=== PATIENT | female | born 1985 | race Caucasian/White ===

== ENCOUNTER 2019-04-16 14:52 | Observation (INO) ==
[2019-04-16] MEDS ORDERED: *HR* Dextrose 50 % in Water (Syg) 50 ML SYRINGE ONE (15:19)
--- NOTE | 2019-04-16 15:37 | Emergency Department Note ---
Disposition Clinical Impression: Seizure, Left-sided weakness Disposition: Admitted As Inpatient Condition: Good Referrals: Joe Noguera MD [Primary Care Provider] - Forms: ED Satisfaction Letter Time of Disposition: 17:34 General Adult HPI - General Chief complaint: ED Seizure Stated complaint: seizures Time Seen by Provider: 04/16/19 15:00 Source: EMS Limitations: no limitations Nursing Notes Reviewed: Yes Vital Signs Reviewed: Yes - History of Present Illness HPI Narrative: 33 year old female presents to the ED with complanits of left sided weakness s/p seizure today. she has been having seizures on and off ove rhte past year and is otherwise without medications and had another siezure today at 1330 and states that she has intermiteemtn LOC. Sacha aranda at bedside states that it was witnessed and othewise that her right side started to have jerk like motions. Patient is laying at bedside now with significant weaknes to the lefts suhail of her upper and lower extremity which can be concnering for todds paralysis although she has aphasia and difficulty with speaking clearly which I would not otherwise expect with Todds paralysis. Sacha partner and mother at bedside states that her previous seizure have been secondary to anxiety but not this bad and that she has recently been dealing with a viral URI. No fevers at home Pain Scale: 5 - Related Data Home Medications Medication Instructions Recorded Confirmed Albuterol Sulfate [Albuterol 1 puff IH PRN PRN 07/01/15 04/16/19 Inhaler] Oxycodone HCl/Acetaminophen 1 tab PO DAILY 07/01/15 04/16/19 [Percocet 5-325 mg Tablet] ALPRAZolam [Xanax 0.5 MG Tablet] 1 mg PO TID PRN 09/28/16 04/16/19 Docusate [Colace] 100 mg PO BID PRN 09/28/16 04/16/19 Omeprazole [PriLOSEC] 40 mg PO DAILY 09/28/16 04/16/19 Previous Rx's Medication Instructions Recorded Ciprofloxacin [Cipro] 500 mg PO BID #6 tablet 10/13/16 Rizatriptan Benzoate [[employer]] 10 mg PO AD PRN #30 tab.rapdis 10/13/16 Promethazine [Phenergan] 25 mg PO Q8HR #20 tablet 02/10/17 Allergies Allergy/AdvReac Type Severity Reaction Status Date / Time diphenhydramine Allergy Itching Verified 02/02/19 14:03 [From Benadryl] prochlorperazine Allergy Itching Verified 02/02/19 14:03 [From Compazine] Sulfa (Sulfonamide Allergy Hives Verified 02/02/19 14:03 Antibiotics) metoclopramide [From Reglan] AdvReac Difficulty Verified 02/02/19 14:03 Breathing ondansetron AdvReac Headache Verified 02/02/19 14:03 [From Zofran (as hydrochloride)] All systems ED: reviewed and negative except as stated. Review of Systems: As Per HPI Constitutional: Reports: weakness. Denies: fever, chills, weight change Eyes: Denies: eye pain, eye discharge, vision change ENT ED: Denies: ear pain, throat pain, dental pain, hearing loss, epistaxis, congestion, dysphagia Cardiovascular: Denies: chest pain, palpitations, dyspnea on exertion, edema, syncope Respiratory: Denies: cough, dyspnea, wheezes, hemoptysis, stridor Gastrointestinal: Denies: abdominal pain, nausea, vomiting, diarrhea, constipation, hematemesis, melena, hematochezia Genitourinary: Denies: dysuria, frequency, hematuria, discharge Musculoskeletal: Denies: back pain, neck pain, arthralgia, myalgia Integumentary: Denies: rash, abrasion, lesions Neurological: Reports: weakness, paresthesias. Denies: headache, numbness, confusion, abnormal gait, vertigo Psychiatric: Reports: anxiety. Denies: depression, suicidal thoughts, homicidal thoughts, auditory hallucinations, visual hallucinations Endocrine: Denies: fatigue Hematological/Lymphatic: Denies: easy bleeding, easy bruising Allergic/Immunologic: Denies: facial swelling, urticaria Past Medical History - Past Medical History Medical history: Reports: asthma, migraine, seizures Surgical history: Reports: appendectomy, cholecystectomy Psychiatric history: Reports: anxiety, depression LIAISON OFFICER history: Reports: non-contributory, bilateral tubal ligation - Social History Smoking Status: Never smoker Smokeless Tobacco Status: No Alcohol use: Reports: none Drug use: Reports: none Physical Exam - General Limitations: no limitations General appearance: alert, anxious, lethargic - Head Head exam: atraumatic, normocephalic, normal inspection - Eye Eye exam: Present: normal appearance, PERRL, EOMI - Expanded Eye Exam Pupils: Bilateral: reactive - ENT ENT exam: normal exam, normal oropharynx, mucous membranes moist - Expanded ENT Exam External ear exam: Present: normal external inspection Mouth exam: Present: normal external inspection Teeth exam: Present: normal inspection Throat exam: Present: normal inspection - Neck Neck exam: Present: normal inspection, full ROM, trachea midline - Chest Chest inspection: Present: normal inspection, symmetric chest wall rise - Respiratory Respiratory exam: Present: normal lung sounds bilaterally - Cardiovascular Cardiovascular exam: Present: regular rate, normal rhythm, normal heart sounds - Abdominal Exam Abdominal exam: Present: soft, Non-Tender. Absent: tenderness, distention, guarding, rebound, rigidity - Extremities Exam Extremities exam: Present: normal inspection, full ROM. Absent: tenderness, pedal edema - Expanded Upper Extremity Exam Shoulder exam: Present: normal inspection, full ROM Arm exam: Present: normal inspection, full ROM Elbow exam: Present: normal inspection, full ROM Forearm/Wrist exam: Present: normal inspection, full ROM Hand exam: Present: normal inspection, full ROM Vascular exam: Normal: capillary refill, radial pulse - Expanded Lower Extremity Exam Hip/Pelvis exam: Present: normal inspection, full ROM Upper leg exam: Present: normal inspection, full ROM Knee exam: Present: normal inspection, full ROM Lower leg exam: Present: normal inspection, full ROM Ankle exam: Present: normal inspection, full ROM Foot/toe exam: Present: normal inspection, full ROM Neurovascular/Tendon exam: Absent: motor deficit, sensory deficit, tendon deficit - Back Exam Back exam: Present: normal inspection, full ROM. Absent: tenderness - Neurological Exam Neurological exam: Present: alert, oriented X3 - Expanded Neurological Exam Patient oriented to: Present: person, place, time Speech: Present: expressive aphasia Cranial nerves: EOM function (II, III, IV, ): Normal, facial sensation (V): Abnormal Left, facial palsy (VII): Abnormal Left, gag reflex (IX): Normal, spinal accessory function (XI): Normal, tongue deviation (XII): Normal Motor strength - LUE: 3/5 Motor strength - RUE: 5/5 Motor strength - LLE: 3/5 Motor strength - RLE: 5/5 Coma Scale Eye Opening: Spontaneous Coma Scale Motor Response: Obeys Commands Coma Scale Verbal Response: Oriented Coma Scale Total: 15 - Psychiatric Psychiatric exam: Present: normal affect, normal mood - Skin Skin exam: Present: warm, dry, intact, normal color Course Course Narrative: Patient is likeyl experiencing Todds aphasia although it is otherwise uncharacteristic to have aphasia. 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 glucose of 69, d50 given for therapy. - Consultations Consultation #1: discussed case with [facility] neurolgoist dr. bryant and states she is not a candidate for TPA but would recommend admision for CTA/MRI Time: 16:00 Consultation #2: discussed case with Dr. Cuadra and she accpets patine to her medicine service Time: 17:33 Vital Signs Temperature 97.4 F L 04/16/19 15:03 Pulse Rate 66 04/16/19 15:03 Respiratory Rate 24 04/16/19 15:03 Blood Pressure 133/91 04/16/19 15:03 O2 Sat by Pulse Oximetry 100 04/16/19 15:03 Temperature 97.4 F L 04/16/19 15:03 Pulse Rate 60 04/16/19 15:35 Respiratory Rate 20 04/16/19 15:35 Blood Pressure 122/62 04/16/19 15:35 O2 Sat by Pulse Oximetry 100 04/16/19 15:25 Oxygen Delivery Oxygen Delivery Room Air Medical Decision Making - Lab Data Result diagrams: 04/16/19 15:51 04/16/19 15:51 Lab Results 04/16/19 04/16/19 04/16/19 Range/Units 15:14 15:51 15:51 WBC 13.1 H (4.3-11.1) K/mcL RBC 4.80 (3.82-4.97) M/mcL Hgb 14.0 (11.5-15.4) g/dL Hct 42.0 (35.3-44.9) % MCV 87.5 (83.0-100.0) fL MCH 29.2 (28.0-33.3) pg MCHC 33.3 (31.6-35.5) g/dL RDW 12.6 (11.5-14.5) % Plt Count 289 (140-400) K/mcL MPV 9.5 (9.4-12.4) fL Immature Plt Fraction 1.9 (1.1-6.1) % PT 12.3 H (9.4-12.1) Seconds INR 1.1 APTT 34.3 (26.0-36.0) Seconds Sodium (136-145) mEq/L Potassium (3.5-5.1) mEq/L Chloride (98-107) mEq/L Carbon Dioxide (23-29) mEq/L BUN (6-20) mg/dL Creatinine (0.60-1.20) mg/dL Est GFR ( Amer) (> 60) Est GFR (Non-Af Amer) (> 60) BUN/Creatinine Ratio (6-26) Glucose (70-105) mg/dL POC Glucose 69 L (70-99) mg/dL Calculated Osmolality (280-300) Calcium (8.6-10.3) mg/dL Troponin I (< 0.04) ng/mL 04/16/19 04/16/19 Range/Units 15:51 16:19 WBC (4.3-11.1) K/mcL RBC (3.82-4.97) M/mcL Hgb (11.5-15.4) g/dL Hct (35.3-44.9) % MCV (83.0-100.0) fL MCH (28.0-33.3) pg MCHC (31.6-35.5) g/dL RDW (11.5-14.5) % Plt Count (140-400) K/mcL MPV (9.4-12.4) fL Immature Plt Fraction (1.1-6.1) % PT (9.4-12.1) Seconds INR APTT (26.0-36.0) Seconds Sodium 141 (136-145) mEq/L Potassium 3.5 (3.5-5.1) mEq/L Chloride 106 (98-107) mEq/L Carbon Dioxide 22 L (23-29) mEq/L BUN 11 (6-20) mg/dL Creatinine 0.71 (0.60-1.20) mg/dL Est GFR ( Amer) > 60 (> 60) Est GFR (Non-Af Amer) > 60 (> 60) BUN/Creatinine Ratio 15 (6-26) Glucose 195 H (70-105) mg/dL POC Glucose 167 H (70-99) mg/dL Calculated Osmolality 297 (280-300) Calcium 9.8 (8.6-10.3) mg/dL Troponin I < 0.03 (< 0.04) ng/mL NIH Stroke Scale - Level of Consciousness LOC: Alert - LOC Questions LOC Questions: Answers both correctly - LOC Commands LOC Commands: Performs one correctly - Best Gaze Best Gaze: Normal - Visual Visual: No visual loss - Facial Palsy Facial Palsy: Minor asymmetry on smiling, flattened nasolabial fold - Motor Arms Motor Arm-Left: Drift, does NOT hit bed Motor Arm-Right: No drift for 10 seconds - Motor Legs Motor Leg-Left: Drift, does NOT hit bed Motor Leg-Right: No drift for 5 seconds - Limb Ataxia Limb Ataxia: Absent of affected limb too weak to perform exam - Sensory Sensory: Mild to moderate loss, "not as sharp" - Best Language Best Language: Mild to moderate aphasia. Examiner can identify picture from response - Dysarthria Dysarthria: Mild, slurs some words - Extinction and Inattention Extinction and Inattention: Inattention or extinction in ONE modality - NIHSS Total Score NIHSS Total Score: 8
[2019-04-16] MEDS ORDERED: Isovue-370 500 ML BOTTLE IVP ONE (15:40)
[2019-04-16 16:01] LABS: Immature Platelets 1.9 % (1.1-6.1); Mean Corpuscular HGB Conc 33.3 g/dL (31.6-35.5); Mean Corpuscular Hemoglobin 29.2 pg (28.0-33.3); Mean Corpuscular Volume 87.5 fL (83.0-100.0); Mean Platelet Volume 9.5 fL (9.4-12.4); Red Blood Count 4.8 M/mcL (3.82-4.97); Red Cell Distribution Width 12.6 % (11.5-14.5)
[2019-04-16 16:08] LABS: INR 1.1; Prothrombin Time 12.3 Seconds (9.4-12.1)
[2019-04-16 16:11] LABS: Activated Partial Thrombo Time 34.3 Seconds (26.0-36.0)
[2019-04-16 16:26] LABS: BUN/Creatinine Ratio 15 (6-26); Blood Urea Nitrogen 11 mg/dL (6-20); Calcium 9.8 mg/dL (8.6-10.3); Carbon Dioxide 22 mEq/L (23-29); Chloride 106 mEq/L (98-107); Glucose 195 mg/dL (70-105); Osmolality,Calculated 297 (280-300); Potassium 3.5 mEq/L (3.5-5.1); Sodium 141 mEq/L (136-145); Troponin I < 0.03 ng/mL (< 0.04); eGFR For Non-African Americans > 60 (> 60)
[2019-04-16] MEDS ORDERED: Ondansetron 4 MG/2 ML VIAL IVP ONE (17:14)
[2019-04-16] MEDS ORDERED: GI Cocktail 40 ML EACH PO ONE (17:14)
[2019-04-16] MEDS ORDERED: SUMAtriptan succinate 50 MG TABLET PO PRN (17:35)
[2019-04-16] MEDS ORDERED: Ondansetron 4 MG/2 ML VIAL IVP PRN (17:54)
[2019-04-16] MEDS ORDERED: Naloxone 0.4 MG/ML INJ IVP PRN (17:54)
--- NOTE | 2019-04-16 18:01 | Internal Med History&Physical ---
Date of Encounter: 04/16/19 Time of Encounter: 17:40 Internal Medicine - H&P: HPI Chief complaint: seizure Admitted From: Home History of present illness: Ms. Rucker is a 33 year old female with history of migraine, asthma, obesity, ?seizure since 10/2018, who presented to the ED after an episode of ?seizure today. She is that that she was feeling unwell when she woke up at 11:00 this morning, took her Maxaalt as she thought that it was her migraine coming, and slept off. She woke up at 130pm when she felt intense nausea and it was followed by R UE/LE jerking that was witnessed by her partner. PT reports that she has no recollection of this event. LAsted about 10 mins, spontaneously aborted, associated with loss of bladder/bowel control or up rolling of the eyes. She was however confused for about 10 minutes afterward. When she gained her consciousness, she noted that her L UE and LE were signficantly weaker than the right and also had numbness on that side hence came to the ED for further evaluation. Other than reproducible, point tenderness at the lower end of the sternum, she has no other focal complaints including chest pain, shortness of breath, palpitation, abdominal pain, dysuria, or fever/chills. No recent sick contacts. In the ED, she was afebrile and hemodynamically stable. Labwork was largely unremarkable except for mild leukocytosis of 13.1. Head CT did not show any acute intracranial processes. She has stroke alert activated due to L sided weakness and the recommendation from [facility] neurology was to proceed with CTA and MRI. Patient will be admitted for further management with neurology consultation. Past Med Surg Social Fam HX - Past Medical History Attestation: Yes The following information was validated with the patient. Medical history: asthma, migraine, seizures Additional medical history: New hx seizures, blind left eye Psychiatric history: anxiety, depression - Past Surgical History Surgical History: appendectomy, cholecystectomy Additional surgical history: eye surgery x 3 - Social History Smoking Status: Never smoker Smokeless Tobacco Status: No Alcohol use: none Drug use: none - Additional Family History Additional family history: No family history of epilepsy Internal Medicine - H&P: Meds Albuterol Sulfate [Albuterol Inhaler] 1 puff IH PRN PRN 07/01/15 [History] Oxycodone HCl/Acetaminophen [Percocet 5-325 mg Tablet] 1 tab PO DAILY 07/01/15 [History] ALPRAZolam [Xanax 0.5 MG Tablet] 1 mg PO TID PRN 09/28/16 [History] Docusate [Colace] 100 mg PO BID PRN 09/28/16 [History] Omeprazole [PriLOSEC] 40 mg PO DAILY 09/28/16 [History] Ciprofloxacin [Cipro] 500 mg PO BID #6 tablet 10/13/16 [Rx] Rizatriptan Benzoate [[employer] Occ Therapy Asst] 10 mg PO AD PRN #30 tab.rapdis 10/13/16 [Rx] Promethazine [Phenergan] 25 mg PO Q8HR #20 tablet 02/10/17 [Rx] Allergy/AdvReac Type Severity Reaction Status Date / Time diphenhydramine Allergy Itching Verified 02/02/19 14:03 [From Benadryl] prochlorperazine Allergy Itching Verified 02/02/19 14:03 [From Compazine] Sulfa (Sulfonamide Allergy Hives Verified 02/02/19 14:03 Antibiotics) metoclopramide [From Reglan] AdvReac Difficulty Verified 02/02/19 14:03 Breathing ondansetron AdvReac Headache Verified 02/02/19 14:03 [From Zofran (as hydrochloride)] All Systems PM: A 10-system review of systems was performed and is negative for pertinent findings except as documented above in the HPI. - Constitutional Vitals: Temp Pulse Resp BP Pulse Ox 97.4 F L 60 20 122/62 100 04/16/19 15:03 04/16/19 15:35 04/16/19 15:35 04/16/19 15:35 04/16/19 15:25 Exam: General: Alert and oriented, not in acute distress. HEENT:EOMI, pupils equal, round and reactive. Cardiovascular:Normal S1 & S2, No JVD. Pulse regular. Point tenderness at the lower sternum Lungs: clear to auscultation, no wheezes/rales Abdomen:Soft, non-tender, no rigidity. Extremities:No deformity or swelling Neurological: CN II-XII intact, L LE/UE power 4-/5. RUE/LE power full. Subjective loss of sensation in all dermatomes of L UE and LE. No cerebellar signs, pronator drift -ve, Babinski downgoing bilaterally Skin:Normal color, no rash, no lesions. Pulses:Carotid and radial pulses normal +2. Rest of the physical exam is non contributory Internal Med - H&P Results - Labs CBC & Chem 7: 04/16/19 15:51 04/16/19 15:51 Labs: Short CBC 04/16/19 Range/Units 15:51 WBC 13.1 H (4.3-11.1) K/mcL Hgb 14.0 (11.5-15.4) g/dL Hct 42.0 (35.3-44.9) % Plt Count 289 (140-400) K/mcL BMP 04/16/19 15:51 Sodium 141 Potassium 3.5 Chloride 106 Carbon Dioxide 22 L BUN 11 Creatinine 0.71 Glucose 195 H Calcium 9.8 Cardiac Enzymes 04/16/19 Range/Units 15:51 Troponin I < 0.03 (< 0.04) ng/mL - Impressions ITS Impressions Head CT 04/16/19 15:14 IMPRESSION: No acute intracranial abnormality. Findings were discussed with Rochelle Cortes DO at 3:34 pm on 04/16/2019. D/ / Ravin Alonzo MD / Ravin Alonzo MD Interpreting Provider: Ravin Alonzo MD - Assessment and Plan (1) Left-sided weakness Current Visit: Yes Status: Acute Assessment and plan: Her presentation appears to be consistent with Edilberto's paralysis following seizure vs. complicated migraine. Less likely due to TIA/CVA CT head -ve follow up on CTA that was ordered in the ED MRI brain neurology consult NIHSS and neuro check (2) Seizure Current Visit: Yes Status: Acute Assessment and plan: unsure whether this event was a legitimate episode of sz vs. complicated migraine seizure precaution EEG MRI as above neurology consult (3) Migraine Current Visit: Yes Status: Chronic Assessment and plan: Although her episode appears to be consistent with seizure, complicated migraine could also be a contributing factor She was apparently prescribed propranolol for prophylactic therapy but reports noncompliance imitrex PRN for abortive therapy neuro consult Qualifiers: Migraine type: with aura Status migrainosus presence: without status migrainosus Intractability: intractable Qualified Code(s): G43.119 - Migraine with aura, intractable, without status migrainosus (4) Asthma Current Visit: Yes Status: Chronic Assessment and plan: not in exacerbation PRN albuterol Qualifiers: Asthma severity: mild Asthma persistence: intermittent Asthma complication type: unspecified Qualified Code(s): J45.20 - Mild intermittent asthma, uncomplicated (5) DVT prophylaxis Current Visit: Yes Status: Acute Assessment and plan: EPCD - Time Spent With Patient Total time spent is greater than 50% in coordination of care (as documented) at patient's floor/unit and/or counseling patient: Greater than 35 minutes
[2019-04-16] MEDS: ALPRAZolam 0.5 MG TABLET PO PRN (20:38)
[2019-04-16] MEDS: Promethazine 12.5 MG in 0.9 % Sodium Chloride 50 ML IVPB PRN (21:20)
[2019-04-16] MEDS ORDERED: Ketorolac 30 MG/ML VIAL IVP ONE (23:44)
[2019-04-17 02:29] LABS: Basophils % 0.3 %; Eosinophils % 0.1 %; Hematocrit 43.8 % (35.3-44.9); Hemoglobin 14.4 g/dL (11.5-15.4); Immature Granulocytes % 0.3 % (0-4); Lymphocytes # 1.6 K/mcL (0.6-4.6); Mean Corpuscular HGB Conc 32.9 g/dL (31.6-35.5); Mean Corpuscular Hemoglobin 28.6 pg (28.0-33.3); Mean Corpuscular Volume 86.9 fL (83.0-100.0); Mean Platelet Volume 9.6 fL (9.4-12.4); Monocytes # 0.5 K/mcL (0.0-1.3); Monocytes % 4.4 %; Neutrophils # 9.8 K/mcL (1.6-8.9); Platelet Count 324 K/mcL (140-400); Red Blood Count 5.04 M/mcL (3.82-4.97); Red Cell Distribution Width 12.8 % (11.5-14.5); Segmented Neutrophils % 81.9 %
[2019-04-17] MEDS ORDERED: *HR* OxyCODONE Immed Rel 5 MG TABLET PO ONE (03:19)
[2019-04-17 03:30] LABS: BUN/Creatinine Ratio 16 (6-26); Blood Urea Nitrogen 10 mg/dL (6-20); Calcium 9.5 mg/dL (8.6-10.3); Carbon Dioxide 26 mEq/L (23-29); Chloride 106 mEq/L (98-107); Glucose 103 mg/dL (70-105); Magnesium 2.1 mg/dL (1.6-2.6); Osmolality,Calculated 287 (280-300); Sodium 139 mEq/L (136-145); eGFR For Non-African Americans > 60 (> 60)
[2019-04-17] MEDS: ALPRAZolam 0.5 MG TABLET PO PRN ×2 (05:23→15:59)
[2019-04-17] MEDS: Promethazine 12.5 MG in 0.9 % Sodium Chloride 50 ML IVPB PRN ×3 (05:24→21:43)
[2019-04-17] MEDS ORDERED: (Rizatriptan Benzoate [Maxalt Mlt] 10 MG) PO PRN (10:51)
--- NOTE | 2019-04-17 10:52 | Internal Med Progress Note ---
Hospitalist Progress Note - Encounter Date of Encounter: 04/17/19 Time of Encounter: 09:45 - Subjective Interval History: No seizure-like episodes since the presentation. No fever overnight. Denies any shortness of breath, cough, abdominal pain, or dysuria - Exam Vitals: Temp Pulse Resp BP Pulse Ox 97.8 F 62 18 113/73 99 04/17/19 08:39 04/17/19 08:39 04/17/19 08:39 04/17/19 08:39 04/17/19 08:39 Exam: General: Alert and oriented, not in acute distress. Cardiovascular:Normal S1 & S2, No JVD. Pulse regular. Lungs: clear to auscultation, no wheezes/rales Abdomen:Soft, non-tender, no rigidity. Extremities:No deformity or swelling Neurological: CN II-XII intact, L LE/UE power 4-/5. RUE/LE power full. Subjective loss of sensation in all dermatomes of L UE and LE. No cerebellar signs, pronator drift -ve, Babinski downgoing bilaterally - Assessment and Plan (1) Left-sided weakness Current Visit: Yes Status: Acute Assessment and Plan: Her presentation appears to be consistent with Edilberto's paralysis following seizure vs. complicated migraine. Less likely due to TIA/CVA CT head -ve, CTA head and neck WNL MRI brain pending discussed with neurology, a/w for evaluation NIHSS and neuro check, can likely be d/onelia after MRI is done (2) Seizure Current Visit: Yes Status: Acute Assessment and Plan: unsure whether this event was a legitimate episode of sz vs. complicated migraine seizure precaution EEG MRI as above neurology consult (3) Migraine Current Visit: Yes Status: Chronic Assessment and Plan: Although her episode appears to be consistent with seizure, complicated migraine could also be a contributing factor She was apparently prescribed propranolol for prophylactic therapy but reports being taken off by PCP states that imitrex had not been effective for abortive therapy, will resume home meds of Maxalt neuro consult (4) Asthma Current Visit: Yes Status: Chronic Assessment and Plan: not in exacerbation PRN albuterol (5) DVT prophylaxis Current Visit: Yes Status: Acute Assessment and Plan: EPCD - Time Spent with Patient Total time spent is greater than 50% in coordination of care (as documented) at patient's floor/unit and/or counseling patient: 25 - 35 minutes Plan of Care Discussed with: patient Internal Medicine: Result - Labs CBC & Chem 7: 04/17/19 01:50 04/17/19 01:50 Labs: Short CBC 04/16/19 04/17/19 Range/Units 15:51 01:50 WBC 13.1 H 12.0 H (4.3-11.1) K/mcL Hgb 14.0 14.4 (11.5-15.4) g/dL Hct 42.0 43.8 (35.3-44.9) % Plt Count 289 324 (140-400) K/mcL Neutrophils # 9.8 H (1.6-8.9) K/mcL BMP 04/16/19 04/17/19 15:51 01:50 Sodium 141 139 Potassium 3.5 4.0 Chloride 106 106 Carbon Dioxide 22 L 26 BUN 11 10 Creatinine 0.71 0.62 Glucose 195 H 103 Calcium 9.8 9.5 Cardiac Enzymes 04/16/19 04/17/19 Range/Units 15:51 01:00 Troponin I < 0.03 < 0.03 (< 0.04) ng/mL - ABG Interpretation ABG results: PT/INR, D-dimer PT 12.3 Seconds (9.4-12.1) H 04/16/19 15:51 - Impressions Impressions Head CT 04/16/19 15:14 IMPRESSION: No acute intracranial abnormality. Findings were discussed with Rochelle Cortes DO at 3:34 pm on 04/16/2019. D/ / Ravin Alonzo MD / Ravin Alonzo MD Interpreting Provider: Ravin Alonzo MD Head CTA 04/16/19 15:40 IMPRESSION: No focal significant arterial narrowing in the head or the neck. D/ / Vladimir Means / Vladimir Means Interpreting Provider: Vladimir Means Neck CTA 04/16/19 15:40 IMPRESSION: No focal significant arterial narrowing in the head or the neck. D/ / Vladimir Means / Vladimir Means Interpreting Provider: Vladimir Means Consult Discharge Plan - Plan Referrals: Joe Noguera MD [Primary Care Provider] - (APPOINTMENT HAS BEEN REQUESTED.) (3) Migraine Qualifiers: Migraine type: with aura Status migrainosus presence: without status migrainosus Intractability: intractable Qualified Code(s): G43.119 - Migraine with aura, intractable, without status migrainosus (4) Asthma Qualifiers: Asthma severity: mild Asthma persistence: intermittent Asthma complication type: unspecified Qualified Code(s): J45.20 - Mild intermittent asthma, uncomplicated
--- NOTE | 2019-04-17 13:22 | EEG/EMG/Oth Biometrics Report ---
EEG Procedure Report Date of procedure: 04/17/19 EEG Procedure: Routine EEG Procedure Note: This is a report of a 21 channel bipolar and referential montage EEG. The posterior dominant rhythm consisted of 10 Hz moderate voltage alpha frequency. This rhythm attenuates symmetrically with eye opening. Hyperventilation is not performed at the patient's request. Patient drowsiness and stage II sleep identified as reference by dropout of the posterior dominant rhythm and emergence of vertex activity, K complexes and sleep spindles. Toes beta frequencies are identified anteriorly intermittently during the recording. Photic scintillations performed and does not produce a driving response. The EKG rhythm strip reveals normal sinus rhythm at 72 bpm. Impressions: This EEG recording is within normal limits. There is no evidence of epileptiform activity identified during the study. Comment: Beta frequencies are indeed recognized as a normal variant. However may also be indicative of a host of metabolic conditions, anxiety as well as medication effect. A normal EEG does not preclude a diagnosis of seizure or epilepsy. If the clinical suspicion for seizure activity is high, serial EEGs or perhaps a prolonged recording may increase the yield. Please correlate clinically.
--- NOTE | 2019-04-17 14:21 | Neurology - Consult Note ---
Date of Encounter: 04/17/19 Time of Encounter: 14:17 Assessment and Plan (1) Vestibular migraine Current Visit: Yes Status: Acute I am unable to account for all of her ascending symptoms via any unified diagnosis. However vestibular migraine might explain her nausea, vertigo which was later followed by a headache. Although she still professes left upper and left lower extremity weakness generally a migraine aura cole persists for more than one hour. And I am unable to reconcile this weakness by her neurologic exam or by the neuroimaging of which MRI and CTA of the brain were both negative. Her EEG was normal revealing no evidence of seizure activity. I believe that there is more than likely an anxiety related component with this particular episode. At this point I would hold off on starting her on any antiepileptic medication. I would recommend having her follow up with her assisting neurologist Dr. Damon after discharge to consider a 24 or 48 hour ambulatory EEG. Until then however seizure precautions should remain in effect and these were discussed with the patient. I will reevaluate her at your request. History of Present Illness HPI: The chart was reviewed, the patient was seen and examined. Ms. Rucker is a 33 year old female who is seen my associate Dr. Damon in the past for episodes of altered consciousness. She is admitted to the hospital secondary to another event. Upon awakening on the morning of admission she states that she felt somewhat nauseated and thought she was about experience a migraine. She later describes dizziness with actual spinning sensation characterizing vertigo. She denies actual emesis. And she developed paresthesias of the upper and lower extremities and weakness of the left upper and left lower extremity. She still has complaints of weakness. She had some jerking of her right upper and lower extremity was felt to resemble seizure activity. She did not bite her tongue. The episode lasted for 10 minutes and apparently there was loss of continence. The patient was assessed via the tele-stroke network at [facility] rule out stroke. She has had CTA of the head and neck as well as MRI scan of the brain all of which were negative. An EEG was obtained which I interpreted myself, this was negative as well. Lab work was essentially negative with the exception of a mild leukocytosis at 13.1. Patient agrees that she does have anxious tendencies which have been worse since the passing of her father in December of this year. Past Med Surg Social Fam HX - Past Medical History Medical history: asthma, migraine, seizures Additional medical history: New hx seizures, blind right eye Psychiatric history: anxiety, depression - Past Surgical History Surgical History: appendectomy, , colectomy Additional surgical history: eye surgery x 3 - Social History Smoking Status: Never smoker Smokeless Tobacco Status: No Alcohol use: occasionally Drug use: none - Family History Father Living Status: Age at : 59 Cause of : pancreatic cancer Hx Family Cancer: Yes Hx Family Endocrine Disorder: Yes (dm) Mother Living Status: Still Living Hx Family Respiratory Disorders: Yes (copd) Medications and Allergies Albuterol Sulfate [Albuterol Inhaler] 1 puff IH PRN PRN 07/01/15 [History] Oxycodone HCl/Acetaminophen [Percocet 5-325 mg Tablet] 1 tab PO DAILY 07/01/15 [History] ALPRAZolam [Xanax 0.5 MG Tablet] 1 mg PO TID PRN 09/28/16 [History] Docusate [Colace] 100 mg PO BID PRN 09/28/16 [History] Omeprazole [PriLOSEC] 40 mg PO DAILY 09/28/16 [History] Rizatriptan Benzoate [Maxalt Field Sales Agent] 10 mg PO AD PRN #30 tab.rapdis 10/13/16 [Rx] Promethazine [Phenergan] 25 mg PO Q8HR #20 tablet 02/10/17 [Rx] Allergy/AdvReac Type Severity Reaction Status Date / Time diphenhydramine Allergy Itching Verified 02/02/19 14:03 [From Benadryl] prochlorperazine Allergy Itching Verified 02/02/19 14:03 [From Compazine] Sulfa (Sulfonamide Allergy Hives Verified 02/02/19 14:03 Antibiotics) metoclopramide [From Reglan] AdvReac Difficulty Verified 02/02/19 14:03 Breathing ondansetron AdvReac Headache Verified 02/02/19 14:03 [From Zofran (as hydrochloride)] All Systems: The remainder of the systems were reviewed and are negative Review of Systems: The balance of the systems review is negative. Physical Examination - Vital Signs Vital Signs: Initial Vital Signs Temp Pulse Resp BP Pulse Ox 97.4 F L 66 24 133/91 100 04/16/19 15:03 04/16/19 15:03 04/16/19 15:03 04/16/19 15:03 04/16/19 15:03 - Exam Exam: General Examination: *CONSTITUTIONAL: normal *GENERAL APPEARANCE OF PATIENT appears healthy and well groomed *EYES: pupils equal, round, reactive to light and accommodation, co njunctiva clear without masses or ulcerations, fundi normal. *CARDIOVASCULAR no peripheral edema, distal temperature normal, dorsalis pedis pulses normal. Refer to vital signs Musculoskeletal: *GAIT AND STATION normal, with normal Romberg testing, no abnormalities such as broad base gait or spasticity *ASSESSMENT OF MUSCLE STRENGTH IN THE UPPER AND LOWER EXTREMITIES . There is normal strength of the right deltoid, bicep, tricep, system controller strength, hip flexors ,anterior tibialis, and dorsoflexion of the right foot were normal. She has giveaway weakness of the left upper and left lower extremities in all muscles examined. *MUSCLE TONE IN THE UPPER AND LOWER EXTREMITIES normal. No abnormal movements, fasciculations or atrophy identified. Neurological: *ORIENTATION to time and place *RECURRENT AND REMOTE MEMORY intact *ATTENTION AND CONCENTRATION are normal *LANGUAGE FUNCTION no significant aphasia or dysarthia was noted. *FUND OF KNOWLEDGE aware of current events, past history, vocabulary *MENTAL attention span and concentration normal. *CN II pupillary reflexes were brisk bilaterally. She is blind in the left eye. *CN III,IV, PERRLA extraocular eye movements were full, no nystagmus and no ptosis noted. *CN V shows normal sensation and jaw opens symmetrically. *CN VII shows normal facial movement symmetrically, upper and lower bila terally. *CN VIII shows no significant hearing loss on examination in the office. *CN IX,,X palate elevated symmetrically and normal gag reflex was noted. *CN XI normal strength in the sternocleidomastoid muscles, symmetrical shoulder shrugging. *CN XII tongue protruded in the midline, with normal strength and movement. *SENSORY EXAMINATION there is midline hypoesthesia of the left face arm and leg. *REFLEXES: deep tendon reflexes were normal and symmetrical , grade 2/4 diffusely, no pathological reflexes were noted. *CEREBELLAR TESTING normal finger to nose, heel/knee/cole, and tandem walk. *PAIN LEVEL Results - Laboratory Findings CBC and BMP: 04/17/19 01:50 04/17/19 01:50 Abnormal lab findings: Abnormal lab results WBC 12.0 K/mcL (4.3-11.1) H 04/17/19 01:50 RBC 5.04 M/mcL (3.82-4.97) H 04/17/19 01:50 9.8 K/mcL (1.6-8.9) H 04/17/19 01:50 PT 12.3 Seconds (9.4-12.1) H 04/16/19 15:51 Carbon Dioxide 22 mEq/L (23-29) L 04/16/19 15:51 Glucose 195 mg/dL (70-105) H 04/16/19 15:51 POC Glucose 167 mg/dL (70-99) H 04/16/19 16:19 Consult Discharge Plan - Plan Referrals: Joe Noguera MD [Primary Care Provider] - (APPOINTMENT HAS BEEN REQUESTED.)
[2019-04-17] MEDS: *HR* OxyCODONE/APAP 5/325 TABLET PO PRN (14:37)
[2019-04-17] MEDS ORDERED: Ketorolac 30 MG/ML VIAL IVP ONE (22:45)
[2019-04-17] MEDS ORDERED: GI Cocktail 40 ML EACH PO ONE (22:45)
[2019-04-18] MEDS: ALPRAZolam 0.5 MG TABLET PO PRN ×2 (00:03→10:32)
[2019-04-18] MEDS ORDERED: Famotidine 20 MG/2 ML VIAL IVP ONE (01:16)
[2019-04-18] MEDS ORDERED: Acetaminophen IV 1,000 MG/100 ML INFUS..BTL IVPB ONE (01:17)
[2019-04-18 03:38] LABS: Basophils # 0.1 K/mcL (0.0-0.2); Basophils % 0.5 %; Eosinophils # 0.1 K/mcL (0.0-0.6); Eosinophils % 0.5 %; Hemoglobin 13.1 g/dL (11.5-15.4); Immature Granulocytes % 0.2 % (0-4); Lymphocytes # 2.2 K/mcL (0.6-4.6); Lymphocytes % 20.3 %; Mean Corpuscular HGB Conc 32.8 g/dL (31.6-35.5); Mean Corpuscular Hemoglobin 28.8 pg (28.0-33.3); Mean Corpuscular Volume 87.9 fL (83.0-100.0); Mean Platelet Volume 9.7 fL (9.4-12.4); Monocytes # 0.7 K/mcL (0.0-1.3); Platelet Count 324 K/mcL (140-400); Red Blood Count 4.55 M/mcL (3.82-4.97); Segmented Neutrophils % 72.5 %
[2019-04-18] MEDS: Promethazine 12.5 MG in 0.9 % Sodium Chloride 50 ML IVPB PRN (06:07)
[2019-04-18] MEDS ORDERED: traMADol 50 MG TABLET PO ONE (06:27)
[2019-04-18 07:45] VITALS: BP 113/75
[2019-04-18] MEDS: *HR* OxyCODONE/APAP 5/325 TABLET PO PRN (09:33)
--- NOTE | 2019-04-18 09:56 | Discharge Summary ---
- NOTES TO OUTPATIENT PROVIDER Notes to Outpatient Provider: Follow-up with neurology as an outpatient Orders not resulted at time of discharge: Pending orders 04/16/19 17:34 Urine tox screen [Drug Screen, Urine] [UCHEM] Stat Date of Encounter: 04/18/19 Time of Encounter: 07:45 - Discharge Diagnosis (1) Left-sided weakness Priority: Primary Status: Acute (2) Seizure Priority: Secondary Status: Ruled-out (3) Migraine Priority: Secondary Status: Chronic Qualifiers: Migraine type: with aura Status migrainosus presence: without status migrainosus Intractability: intractable Qualified Code(s): G43.119 - Migraine with aura, intractable, without status migrainosus (4) Asthma Priority: Secondary Status: Chronic Qualifiers: Asthma severity: mild Asthma persistence: intermittent Asthma complication type: unspecified Qualified Code(s): J45.20 - Mild intermittent asthma, uncomplicated (5) DVT prophylaxis Priority: Secondary Status: Acute Hospital course: Ms. Rucker is a 33 year old female with history of migraine was admitted for L sided weakness following ?seizure like episode. CT/MRI -ve, EEG -ve. Seen in consultation with neurology and her symptoms could be attributed to vestibular migraine. Also thought to have anxiety contributing to her symptoms. Therefore, antiepileptic medications were not started and she was advised to follow up with her Neurologist for consideration of 24-48 hour ambulatory EEG. Of note, she claimed that she takes percocet at home as PRN basis but upon reviewing [facility] report, the prescription was not able to be verified hence was not given any opioids to take home with. Discharge discussed with: patient, family, it security consultant - Time Spent with Patient Total time spent providing and/or coordinating discharge services: 27 mins - Discharge Medications Prescriptions: Continued Albuterol Sulfate [Albuterol Inhaler] 1 puff IH PRN PRN PRN Reason: Shortness Of Breath/Wheezing Omeprazole [PriLOSEC] 40 mg PO DAILY Docusate [Colace] 100 mg PO BID PRN PRN Reason: Constipation ALPRAZolam [Xanax 0.5 MG Tablet] 1 mg PO TID PRN PRN Reason: Anxiety Rizatriptan Benzoate [Maxalt Director Of Distance Learning] 10 mg PO AD PRN #30 tab.rapdis PRN Reason: Migraine Headache Promethazine [Phenergan] 25 mg PO Q8HR #20 tablet Discontinued Oxycodone HCl/Acetaminophen [Percocet 5-325 mg Tablet] 1 tab PO DAILY Home Medications: Albuterol Sulfate [Albuterol Inhaler] 1 puff IH PRN PRN 07/01/15 [History] ALPRAZolam [Xanax 0.5 MG Tablet] 1 mg PO TID PRN 09/28/16 [History] Docusate [Colace] 100 mg PO BID PRN 09/28/16 [History] Omeprazole [PriLOSEC] 40 mg PO DAILY 09/28/16 [History] Rizatriptan Benzoate [Maxalt Director Of Distance Learning] 10 mg PO AD PRN #30 tab.rapdis 10/13/16 [Rx] Promethazine [Phenergan] 25 mg PO Q8HR #20 tablet 02/10/17 [Rx] Allergies/Adverse Reactions: Allergy/AdvReac Type Severity Reaction Status Date / Time diphenhydramine Allergy Itching Verified 02/02/19 14:03 [From Benadryl] prochlorperazine Allergy Itching Verified 02/02/19 14:03 [From Compazine] Sulfa (Sulfonamide Allergy Hives Verified 02/02/19 14:03 Antibiotics) metoclopramide [From Reglan] AdvReac Difficulty Verified 02/02/19 14:03 Breathing ondansetron AdvReac Headache Verified 02/02/19 14:03 [From Zofran (as hydrochloride)] Date of admission: 04/16/19 17:49 Primary care physician: Joe Noguera MD Consults: 04/16/19 17:55 Consult to Neurology [CONS] Routine Consulting Provider: [facility] Reason for Consult: seizure vs. complicated migraine Call Completed: No 04/16/19 23:05 Consult to Interpret Exam [CONS] Routine Consulting Provider: Jules Antunez Consult to Interpret Exam: Interpret EEG - Constitutional Vitals: Temp Pulse Resp BP Pulse Ox 97.9 F 63 16 113/75 94 04/18/19 07:42 04/18/19 07:42 04/18/19 07:42 04/18/19 07:42 04/18/19 07:42 Exam: General: Alert and oriented, not in acute distress. Cardiovascular:Normal S1 & S2, No JVD. Pulse regular. Lungs: clear to auscultation, no wheezes/rales Abdomen:Soft, non-tender, no rigidity. Extremities:No deformity or swelling Neurological: CN II-XII intact, L LE/UE power 4-/5. RUE/LE power full. Subjective loss of sensation in all dermatomes of L UE and LE. No cerebellar signs, pronator drift -ve, Babinski downgoing bilaterally - Patient Status Disposition: Home, Self-Care Condition: Good Functional capacity at discharge: independent ambulation Overall status at discharge: patient is progressing back to baseline - Discharge Instructions Instructions: Asthma (DC) Follow Up With: Joe Noguera MD [Primary Care Provider] - (APPOINTMENT HAS BEEN REQUESTED.) Miller Damon MD [Partnered Physician] - - Diet and Activity Activity: resume usual activities as tolerated Diet: advance to your usual diet
--- NOTE | 2019-04-20 06:25 | Electrocardiograph Report ---
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
== END 2019-04-18 11:35 | disposition home or self-care (01) ==
LOC: EMEROOARM 14:52 → 3BNU 14:52 → SUATTDRO 17:49 → 3BNU 18:38
PROVIDERS: ADMIT Internal Medicine Nephrology; ATTEND Internal Medicine